=== PATIENT | male | born 1945 | race Two or more races ===

== ENCOUNTER 2020-08-15 11:34 | Outpatient (CLI) | payer OTHER | END 2020-08-15 11:39 | disposition home or self-care (01) | LOC: SONOGRAMA 11:34 | PROVIDERS: ATTEND Pathology Anatomic Pathology & Clinical Pathology | DX: E04.8 Other specified nontoxic goiter (principal); E04.1 Nontoxic single thyroid nodule; D34 Benign neoplasm of thyroid gland ==